=== PATIENT | male | born 1950 | race Caucasian/White ===

== ENCOUNTER 2019-02-15 04:54 | Outpatient (CLI) | payer MEDICARE ==
[2019-02-15 11:35] LABS: Hemoglobin 14.4 g/dL (14.0-18.0); Mean Corpuscular HGB CONC 33.4 g/dL (32.0-36.0); Mean Corpuscular Hemoglobin 31.1 pg (27.0-31.0); Mean Corpuscular Volume 93.3 fL (78.0-98.0); Mean Platelet Volume 6.7 fL (7.4-10.4); Platelet Count 215 thou/uL (130-400); RBC Distribution Width 12.9 % (11.5-14.5); Red Blood Cell (RBC) Count 4.63 mill/uL (4.70-6.10); White Blood Cell (WBC) Count 7.6 thou/uL (4.8-10.8)
[2019-02-15 12:00] LABS: Anion Gap 9 mmol/L (10-20); BUN (Urea Nitrogen) 14 mg/dL (8.4-25.7); Calc. Creatinine Clearance 0 mL/min (70-130); Calcium 9.5 mg/dL (7.8-10.44); Carbon Dioxide 30 mmol/L (23-31); Chloride 107 mmol/L (98-107); Estimated GFR-MDRD 76; Glucose 94 mg/dL (80-115); Potassium 4.1 mmol/L (3.5-5.1); Sodium 142 mmol/L (136-145)
[2019-02-15 12:55] LABS: Squamous Epithelial 0-3 HPF (0-3); WBC/HPF 21-50 HPF (0-3)
[2019-02-15 12:57] LABS: Bacteria/HPF None Seen HPF (None Seen); Hyaline Casts/LPF 0-3 HYALINE CAST LPF (0-3 Hyaline); Renal Epithelial None Seen HPF (0-3)
== END 2019-02-15 04:55 | disposition home or self-care (01) ==
LOC: LABBT 04:54
PROVIDERS: ATTEND Urology
DX: Z01.818 Encounter for other preprocedural examination (principal); N40.1 Benign prostatic hyperplasia with lower urinary tract symptoms; R33.8 Other retention of urine
CPT/HCPCS: 80048; 81015; 85027; 85610; 85730; 87077; 87086; 93005; 93010

== ENCOUNTER 2019-02-23 07:44 | Inpatient (IN) | payer MEDICARE ==
[2019-02-15 11:18] VITALS: BMI 26.2
[2019-02-23] MEDS ORDERED: Levofloxacin 500 mg/D5W 100 ml Premix Bag ONE (09:00)
[2019-02-23] MEDS ORDERED: Midazolam HCl 2 mg/2 ml Vial ONE (09:52)
[2019-02-23] MEDS ORDERED: Propofol 500 MG/50 ML VIAL ONE (09:52)
[2019-02-23] MEDS ORDERED: Fentanyl 100 MCG/2 ML VIAL ONE (09:52)
[2019-02-23] MEDS ORDERED: B & O ONE (10:56)
[2019-02-23] MEDS ORDERED: Meperidine HCl/PF 25 MG/ML VIAL ONE (12:49)
[2019-02-23] MEDS ORDERED: Meperidine HCl/PF 25 MG/ML VIAL SLOW IVP PRN (12:52)
[2019-02-23] MEDS ORDERED: Ondansetron HCl/PF 4 MG/2 ML Vial IVP PRN (12:52)
[2019-02-23] MEDS ORDERED: Promethazine HCl 25 MG/ML VIAL IM PRN (12:52)
[2019-02-23] MEDS ORDERED: Promethazine HCl 25 MG/ML VIAL SLOW IVP PRN (12:52)
[2019-02-23] MEDS ORDERED: Morphine 2 MG/ML SYRINGE SLOW IVP PRN (13:42)
[2019-02-23] MEDS ORDERED: HYDROcodone/Acetaminophen 5/325 mg Tablet PO PRN ×2 (13:42)
[2019-02-23] MEDS ORDERED: Morphine 4 MG/ML VIAL SLOW IVP PRN (13:42)
[2019-02-23] MEDS ORDERED: diphenhydrAMINE 25 MG CAP PO PRN (13:49)
[2019-02-23] MEDS ORDERED: hydrALAZINE 20 MG/ML VIAL SLOW IVP PRN (13:49)
[2019-02-23] MEDS ORDERED: Oxybutynin 5 MG TAB PO PRN (13:49)
[2019-02-23] MEDS ORDERED: Ondansetron PF 4 MG/2 ML Vial IVP PRN (13:49)
[2019-02-23] MEDS ORDERED: Mag-Al 1200 mg/1200 mg/30 ML UDCUP PO PRN (13:49)
[2019-02-23] MEDS ORDERED: Hyoscyamine Sulfate SL 0.125 mg Tablet SL PRN (13:49)
[2019-02-23] MEDS ORDERED: Sulfameth/Trimethoprim DS 800-160mg TAB PO SCH (14:30)
--- NOTE | 2019-02-23 19:05 | OP ---
DATE OF PROCEDURE: 02/23/2019 SERVICE: Urology. PREOPERATIVE DIAGNOSIS: BPH with lower urinary tract symptoms. POSTOPERATIVE DIAGNOSIS: BPH with lower urinary tract symptoms. PROCEDURE PERFORMED: Prostatic urethral lift with transurethral resection of the prostate. INDICATION FOR PROCEDURE: Mr. Espinoza is a 68-year-old white male, who initially presented to me with BPH and urinary symptoms. He had a history of urinary retention and significant voiding symptoms. I had initially discussed UroLift versus TURP with him and after discussion of both options, he opted to go for the UroLift procedure. Risks and benefits of the surgery were discussed and he has agreed to proceed forward. DESCRIPTION OF PROCEDURE: After identification of armband and verification of consent, the patient was brought back to the operating room, where he underwent total intravenous anesthesia, was placed in dorsal lithotomy position and prepped and draped in usual sterile fashion. After appropriate time-out, the cystoscope was introduced per urethra into the bladder and attention turned to the prostate and bladder neck. Full cystoscopy was performed, which demonstrated similar prostate what had been seen in the previous office cystoscopy. The UroLift device was then attached to the cystoscope after removal of the obturator and first implant was placed on the right, approximately 1.5 cm distal to the bladder neck. Similar implant was placed on the left side. Two additional implants were placed distally, which created a nice anterior channel. Two additional implants had to be placed subsequent to that along the midsection to create a nice opening on the channel. One additional implant was then placed on the right distal prostate to push over the lobe slightly further. Upon completion, there was a nice anterior channel and the prostate was wide open. The flexible cystoscope was brought in and retroflexion was performed, which demonstrated that the proximal UroLift implants actually had penetrated through the bladder and there were capsular implants. This indicates that the proximal implants were likely too proximal too close to the bladder neck. I felt that these had to be removed to avoid encrustation and severe bladder spasms. The cystoscope was brought in and the steel urethral tabs were able to be removed on two of them, however, the third one could not be removed. This required the resectoscope to be brought in and attempted to resect the steel implant, caused the steel implant to actually bury farther in into the tissue. At this point, I was not able to navigate into the little channel that was created by the UroLift. Therefore, we went back in with the flexible cystoscope and we were able to retrieve two out of the three Nitinol capsular tabs with a 2.4-Bermudian Zero Tip Nitinol basket. The third one, the Nitinol tab was actually outside the bladder, probably into the prostatic tissue. However, the suture had traversed inside bladder lining. This could not be grasped with flexible graspers. Therefore, it was cut with endoscopic scissors. This caused the distal end to disappear into the tissues, but the proximal end was sticking up. Attempts to grab it from the inside of the bladder was unsuccessful. Therefore, ureteroscope was brought in and went into the small tunnel that was created when the urethral implant was attempted. The ureteroscope was then introduced into there and the steel implant could be seen along with the remainder of the suture. This could be grasped with a basket and brought out for extraction. At this point, I did not feel comfortable performing any more urethral implants as the prostate had significant deformity secondary to partial TUR and some bleeding. The resectoscope bipolar gyrus was used to cauterize the bleeding. At this point rather than attempt to replace the tabs, I went ahead and performed a miniature TURP to open up the prostatic urethra to at least allow for better urination. Resection was carried up to the verumontanum, but not significantly laterally to avoid excessive resection and surgical time. The prostate channel was open enough to allow for adequate and good urination without the use of medication. The prostate chips were evacuated. There were no additional implants or suture material within the bladder or prostatic urethra, which needed extraction. Final inspection demonstrated both ureteral orifices in orthotopic location. The bladder was intact and the prostatic urethra was dry after meticulous hemostasis. All chips had been evacuated. The resectoscope was then removed and a 22-Bermudian three-way Lopez catheter was placed with ease into the bladder. 30 mL of sterile water placed into the balloon and the patient was initiated on CBI. B and O suppository was placed in his rectum. The patient was then taken out of positioning, awakened, and taken to PACU for recovery in stable condition. Of note, at the time of the resection, the patient did have his anesthesia converted to general with LMA. Complication is bladder strike with the UroLift implant requiring removal and subsequent TURP. SPECIMENS: Prostate chips. ESTIMATED BLOOD LOSS: Minimal. RETAINED TUBES AND DRAINS: A 22-Bermudian 3.0 Lopez catheter. The majority of implants have been removed. The apical implants are still in situ. DISPOSITION: The patient will be kept in the hospital for 23-hour observation to monitor for hematuria. It is likely that we will probably remove the catheter tomorrow and allow the patient to void trial and then be discharged home with subsequent followup. Job ID: [id number]
[2019-02-23] MEDS: Docusate 100 MG CAP PO SCH (21:25)
[2019-02-23] MEDS: Sulfameth/Trimethoprim DS 800-160mg TAB PO SCH (21:26)
[2019-02-24 05:29] LABS: #Eosinphils 0.4 thou/uL (0.0-0.7); #Monocytes 0.8 thou/uL (0.11-0.59); #Neutrophils 5.3 thou/uL (1.40-6.50); %Basophils 0.3 % (0.0-1.0); %Eosinophils 4.7 % (0.0-10.0); %Lymphocytes 23.2 % (21.0-51.0); %Monocytes 9.9 % (0.0-10.0); %Neutrophils 61.9 % (42.0-75.0); Hemoglobin 13.3 g/dL (14.0-18.0); Mean Corpuscular HGB CONC 32.7 g/dL (32.0-36.0); Mean Corpuscular Hemoglobin 30.8 pg (27.0-31.0); Mean Corpuscular Volume 94.1 fL (78.0-98.0); Mean Platelet Volume 6.6 fL (7.4-10.4); Platelet Count 187 thou/uL (130-400); RBC Distribution Width 12.7 % (11.5-14.5); Red Blood Cell (RBC) Count 4.31 mill/uL (4.70-6.10); White Blood Cell (WBC) Count 8.5 thou/uL (4.8-10.8)
[2019-02-24 05:51] LABS: Anion Gap 10 mmol/L (10-20); BUN (Urea Nitrogen) 13 mg/dL (8.4-25.7); Calc. Creatinine Clearance 67 mL/min (70-130); Calcium 9.1 mg/dL (7.8-10.44); Carbon Dioxide 28 mmol/L (23-31); Chloride 108 mmol/L (98-107); Estimated GFR-MDRD 59; Glucose 105 mg/dL (80-115); Potassium 4.6 mmol/L (3.5-5.1); Sodium 141 mmol/L (136-145)
[2019-02-24 08:15] VITALS: BP 113/67; TEMP 99.1
[2019-02-24] MEDS: Docusate 100 MG CAP PO SCH (09:37)
[2019-02-24] MEDS: Sulfameth/Trimethoprim DS 800-160mg TAB PO SCH (09:37)
== END 2019-02-24 11:50 | disposition home or self-care (01) | DRG 714 ==
LOC: SDC 07:44 → SJJU 16:17
PROVIDERS: ADMIT Urology; ATTEND Urology
PROC: 0VB08ZZ Excision of Prostate, Via Natural or Artificial Opening Endoscopic (ICD-10-PCS; principal; 2019-02-23)
PROC: 0T7D8DZ Dilation of Urethra with Intraluminal Device, Via Natural or Artificial Opening Endoscopic (ICD-10-PCS; 2019-02-23)
DX: N40.1 Benign prostatic hyperplasia with lower urinary tract symptoms (principal); R33.8 Other retention of urine
CPT/HCPCS: 36415; 80048; 85025; 88305; C1889; J1956; J2175; J2250; J2704; J3010